=== PATIENT | female | born 1950 | race Caucasian/White ===

== ENCOUNTER → 2023-11-19 10:08 | Outpatient (REF) | payer MEDICARE, SELFPAY | LOC: RAD 10:08 | PROVIDERS: ATTENDING PHYSICIAN Internal Medicine | DX: M81.0 Age-related osteoporosis without current pathological fracture (principal) | CPT/HCPCS: 77080 ==

== ENCOUNTER → 2023-12-04 15:29 | Outpatient (REF) | payer MEDICARE, SELFPAY | LOC: WDC 15:29 | PROVIDERS: ATTENDING PHYSICIAN Obstetrics & Gynecology Gynecology; FAMILY PHYSICIAN Internal Medicine | DX: Z12.31 Encounter for screening mammogram for malignant neoplasm of breast (principal) | CPT/HCPCS: 77063; 77067 ==

== ENCOUNTER → 2023-12-19 12:48 | Outpatient (REF) | payer MEDICARE, SELFPAY | LOC: WDC 12:48 | PROVIDERS: ATTENDING PHYSICIAN Obstetrics & Gynecology Gynecology; FAMILY PHYSICIAN Internal Medicine | DX: R92.2 Inconclusive mammogram (principal) | CPT/HCPCS: 76641 ==

== ENCOUNTER → 2024-12-08 10:43 | Outpatient (REF) | payer MEDICARE, SELFPAY | LOC: WDC 10:43 | PROVIDERS: ATTENDING PHYSICIAN Obstetrics & Gynecology Gynecology; FAMILY PHYSICIAN Internal Medicine | DX: Z12.31 Encounter for screening mammogram for malignant neoplasm of breast (principal) | CPT/HCPCS: 77063; 77067 ==

== ENCOUNTER → 2024-12-22 12:31 | Outpatient (REF) | payer MEDICARE, SELFPAY | LOC: RCS 12:31 | PROVIDERS: ATTENDING PHYSICIAN Internal Medicine | DX: I34.0 Nonrheumatic mitral (valve) insufficiency (principal) | CPT/HCPCS: 93306 ==

== ENCOUNTER → 2025-03-02 10:33 | Outpatient (REF) | payer MEDICARE, SELFPAY | LOC: WDC 10:33 | PROVIDERS: ATTENDING PHYSICIAN Obstetrics & Gynecology Gynecology; FAMILY PHYSICIAN Internal Medicine | DX: R92.2 Inconclusive mammogram (principal) | CPT/HCPCS: 76641 ==

== ENCOUNTER → 2025-03-09 12:24 | Outpatient (REF) | payer MEDICARE, SELFPAY | LOC: RAD 12:24 | PROVIDERS: ATTENDING PHYSICIAN Internal Medicine | DX: E78.5 Hyperlipidemia, unspecified (principal) | CPT/HCPCS: 75571 ==